=== PATIENT | male | born 1955 | race Caucasian/White ===

== ENCOUNTER 2017-03-24 05:58 | Day surgery (SDC) | payer OTHER ==
[~2017-03-24] VITALS: Ht 172.7 cm; Wt 80.0 kg
[2017-03-24] MEDS ORDERED: IBUP200C PO (06:42)
[2017-03-24] MEDS ORDERED: OXYC1CON3 PO (06:42)
[2017-03-24] MEDS ORDERED: ZANT150T2 PO (06:42)
[2017-03-24 06:47] VITALS: BP 169/109; PULSE 72; RESP 20; TEMP 98.2; O2SAT 95
[2017-03-24] MEDS ORDERED: SODIUM CHLORIDE 0.9% 1000 ML IV SCH (07:00)
[2017-03-24] MEDS ORDERED: ceFAZolin 2 GM PREMIX 50 ML - implanted port/tunneled catheter insertion IV SCH (07:00)
[2017-03-24] MEDS ORDERED: POVIDONE IODINE 5% (ANTISEPSIS KIT) 4 APPLICATIONS EACH NARE SCH (07:00)
[2017-03-24] MEDS ORDERED: CHLORHEXIDINE GLUCONATE 2 % 1 PACK (2 CLOTHS) TOPICAL SCH (07:00)
[2017-03-24] MEDS ORDERED: VANCOMYCIN 1000 MG/NS 250 ML - implanted port/tunneled catheter IV SCH ×2 (07:00)
[2017-03-24] MEDS ORDERED: MIDAZOLAM HCL 5 MG/5 ML VIAL ONE (07:55)
--- NOTE | 2017-03-24 08:48 | PD.RAD ---
Post Procedure Progress Note Pre Procedure Diagnosis: (1) Cancer Post Procedure Diagnosis: (1) Cancer Procedure Date: Mar 24, 2017 Supervising Radiologist: Ammon Marvin Proceduralist/Assist: Mini Carver, RT(R)(), Marianne Wang RT(R)(CV) Anesthesia: Conscious Sedation Plan of Activity Patient to Unit: [facility] Patient Condition: Good See PACS Report for procedural detail/treatment Central Venous Access Device Procedure 1 Right Internal Jugular Infusaport Placement single lumen Ammon Marvin MD Mar 24, 2017 08:48
[2017-03-24 09:00] VITALS: BP 150/75; PULSE 73; RESP 18; TEMP 98.2; O2SAT 93
[2017-03-24] MEDS ORDERED: SODIUM CHLORIDE 0.9% FLUSH 10 ML FLUSH IVF PRN (09:00)
[2017-03-24 09:15] VITALS: BP 147/96; PULSE 74; RESP 18; O2SAT 93
[2017-03-24 09:45] VITALS: BP 151/94; PULSE 72; RESP 18; O2SAT 91
[2017-03-24 10:15] VITALS: BP 150/91; PULSE 75; RESP 18; O2SAT 93
[2017-03-24 10:40] VITALS: BP 148/92; PULSE 80; RESP 20; O2SAT 95
--- NOTE | 2017-03-24 10:54 | RADRPT ---
EXAM DATE/TIME: 03/24/2017 08:22 [facility] COMPARISON: No previous studies available for comparison. INDICATIONS : Patient with a history of squamous cell carcinoma of larynx. MEDICAL HISTORY : Laryngeal cancer SURGICAL HISTORY : Right knee surgery PEG tube Tonsillectomy Tracheostomy Vasectomy Laryngectomy and radical neck dissection ENCOUNTER: Initial ACUITY: 1 month PAIN SCORE: 0/10 FLUORO TIME: 0.4 minutes IMAGE SERIES: 1 SEDATION TIME: 25 minutes ACCESS: Right internal jugular vein SEDATION: 1.) 3 mg midazolam (Versed) IV 2.) 200 mcg fentanyl (Sublimaze) IV Prophylactic antibiotics were administered with appropriate pre-procedure timing. Vancomycin within 2 hours of procedure, Ancef (or alternative) within 1 hour of procedure. DEVICE: 1. 8 [place] single lumen Bard Power Port PROCEDURE : 1. Continuous pulse oximetry and EKG monitoring. 2. Intravenous conscious sedation. 3. Ultrasound guidance for venous access. 4. Fluoroscopic guided implantable central venous port placement. The patient was placed supine. The neck was prepped in sterile fashion. Full sterile technique was u sed, including cap, mask, sterile gloves and gown, and a large sterile sheet. Hand hygiene and 2% ch lorhexidine Betadine was utilized per protocol for cutaneous antisepsis with appropriate dry time for site. Sterile gel and sterile probe cover were utilized for ultrasound guidance. The skin and sub cutaneous tissues were infiltrated with local anesthetic solution. Under direct ultrasound guidance, central venous access was accomplished in the targeted vessel. The ultrasound images depicting access guidance were stored and saved to PACS for permanent record. A s ubcutaneous pocket was created using blunt dissection. The port was introduced to the pocket. The c atheter tubing was fed through a subcutaneous tunnel to the venotomy site. The catheter tubing was c ut to a suitable length and then was introduced through a valved Peel-Away sheath and positioned with catheter tubing tip at the cavo-atrial junction level. The pocket incision was closed with subcutic ular Vicryl suture. Steri-Strips were applied. The port was flushed and locked with heparin solutio n per protocol. Sterile dressing was applied to the site. The patient tolerated the procedure well. Conscious sedation was performed with the prescribed dosages and duration as above in the presence of an independent trained radiology nurse to assist in the monitoring of the patient. EKG and oximetry remained stable throughout the procedure. The patient tolerated the procedure well and there were no complications. The patient was sent to post anesthesia recovery in stable condition. CONCLUSION: Uncomplicated ultrasound and fluoroscopic guided implanted central venous port catheter placement as described in detail above. An 8 [place] Power port was placed. Ammon Marvin MD on March 24, 2017 at 10:53 Board Certified Radiologist. This report was verified electronically.
== END 2017-03-24 10:45 | disposition home or self-care (01) ==
LOC: HROP 05:58 → HRIP 06:03 → HROP 10:45
PROVIDERS: ATTEND Internal Medicine Hematology & Oncology
DX: C32.1 Malignant neoplasm of supraglottis (principal)
CPT/HCPCS: 36561; 76937; 77001; 99152; 99153; C1788; J0690; J1642; J2250; J3010; J3370; J7030; J7050

== ENCOUNTER 2017-04-21 06:08 | Day surgery (SDC) | payer OTHER ==
[~2017-04-21] VITALS: Ht 170.2 cm; Wt 83.0 kg
[~2017-04-21 06:08] MED LIST: IBUP200C PO; OXYC1CON3 PO; ZANT150T2 PO
[2017-04-21 06:42] VITALS: BP 164/117; PULSE 82; RESP 20; TEMP 98.3; O2SAT 98
[2017-04-21] MEDS ORDERED: SODIUM CHLORIDE 0.9% 1000 ML IV SCH (07:00)
[2017-04-21] MEDS ORDERED: ceFAZolin 2 GM PREMIX 50 ML - implanted port removal IV SCH (07:00)
[2017-04-21 07:10] LABS: BASOPHIL % 0.6 % (0.0-2.0); EOSINOPHIL # 0.3 TH/MM3 (0-0.4); EOSINOPHIL % 4.5 % (0.0-4.0); HEMATOCRIT 47.3 % (39.0-51.0); HEMO FLAGS DIFF FINAL; LYMPH % 31.6 % (9.0-44.0); LYMPHOCYTE # 2.4 TH/MM3 (1.0-4.8); MEAN CELL VOLUME 83.3 FL (80.0-100.0); MEAN CORPUSCULAR HEMOGLOBIN 27.7 PG (27.0-34.0); MEAN CORPUSCULAR HGB CONC 33.2 % (32.0-36.0); MONO % 10.5 % (0.0-8.0); NEUT % 52.8 % (16.0-70.0); PLATELET COUNT 304 TH/MM3 (150-450); RED BLOOD COUNT 5.68 MIL/MM3 (4.50-5.90); RED CELL DISTRIBUTION WIDTH 15.2 % (11.6-17.2); WHITE BLOOD COUNT 7.5 TH/MM3 (4.0-11.0)
[2017-04-21 07:29] LABS: APTT (PATIENT) 28.4 SEC (24.3-30.1); PROTHROMBIN TIME - PATIENT 10.8 SEC (9.8-11.6)
[2017-04-21] MEDS ORDERED: LIDOCAINE 1%/EPINEPHrine 1:100,000 SOLN 20 ML VIAL ONE (07:43)
[2017-04-21] MEDS ORDERED: MIDAZOLAM HCL 2 MG/2 ML VIAL ONE (07:51)
[2017-04-21 08:51] VITALS: BP 139/86; PULSE 85; RESP 18; TEMP 98; O2SAT 94
--- NOTE | 2017-04-21 08:53 | PD.RAD ---
Post Procedure Progress Note Pre Procedure Diagnosis: (1) Cancer Post Procedure Diagnosis: (1) Cancer Procedure Date: Apr 21, 2017 Supervising Radiologist: Won Mendoza JR Proceduralist/Assist: Tuan Torres, RT(R), Katie Wolf RT(R) Anesthesia: Conscious Sedation Plan of Activity See PACS Report for procedural detail/treatment Central Venous Access Device Procedure 1 Right Internal Jugular Infusaport Removal single lumen Findings: Pt requests port and G tube removal. Port removed without difficulty. Awaiting return call from Dr Rose concerning G tube removal. Plan F/U with IR in 10-14 days for a site check Jr. Reji,Won Elizabeth MD Apr 21, 2017 08:53
[2017-04-21 09:06] VITALS: BP 137/87; PULSE 81; RESP 18; O2SAT 93
--- NOTE | 2017-04-21 09:31 | RADRPT ---
EXAM DATE/TIME: 04/21/2017 07:25 [facility] COMPARISON: No previous studies available for comparison. INDICATIONS : Patient with history of laryngeal squamous cell carcinoma in need of [id number] removal. Patient do es not want to proceed with any further therapy. He wishes the port removed. MEDICAL HISTORY : Throat cancer, GERD, HTN, Radiation and chemotherapy SURGICAL HISTORY : PEG tube placement, Tracheostomy, Laryngectomy and radial neck dissection, Port placement ENCOUNTER: Subsequent ACUITY: 1 month PAIN SCORE: 0/10 SEDATION TIME: 15 minutes 1.) 4 mg midazolam (Versed) IV 2.) 200 mcg fentanyl (Sublimaze) IV Prophylactic antibiotics were administered with appropriate pre-procedure timing. Vancomycin within 2 hrs of procedure, Ancef (or alternative) within 1 hr of procedure. PROCEDURE : 1. Removal of Ihtqbq-m-utvl. 2. Conscious sedation with continuous EKG and oximetry monitoring. The risk, benefits and potential complications of Cgeeum-i-Fuim removal were discussed. Written conse nt was obtained. The patient was placed supine. The chest wall was prepped in sterile fashion. Full sterile techniqu e was used, including cap, mask, sterile gloves and gown, and a large sterile sheet. Hand hygiene an d 2% chlorhexidine and/or Betadine/alcohol prep was utilized per protocol for cutaneous antisepsis. The skin and subcutaneous tissues were infiltrated with local anesthetic solution. A small incision w as made, the subcutaneous pocket was opened. The port was dissected from the subcutaneous tissues and easily removed in one piece. The pocket incision was closed with subcuticular Vicryl suture. Steri -Strips were applied. Conscious sedation was performed with the prescribed dosages and duration as above in the presence of an independent trained radiology nurse to assist in the monitoring of the patient. EKG and oximetry remained stable throughout the procedure. The patient tolerated the procedure well and there were no complications. The patient was sent to post anesthesia recovery in stable condition. CONCLUSION: Uncomplicated port removal as above. Won Mendoza Jr., MD on April 21, 2017 at 9:14 Board Certified Radiologist. This report was verified electronically.
[2017-04-21 09:36] VITALS: BP 121/81; PULSE 74; RESP 18; O2SAT 93
[2017-04-21 10:06] VITALS: BP 130/81; PULSE 78; RESP 18; O2SAT 99
== END 2017-04-21 10:50 | disposition home or self-care (01) ==
LOC: HROP 06:08 → HRIP 06:13 → HROP 10:50
PROVIDERS: ATTEND Internal Medicine Hematology & Oncology
DX: Z45.2 Encounter for adjustment and management of vascular access device (principal); C32.1 Malignant neoplasm of supraglottis; I10 Essential (primary) hypertension; K21.9 Gastro-esophageal reflux disease without esophagitis
CPT/HCPCS: 36590; 85025; 85610; 85730; 99152; J0690; J2250; J3010; J7030